=== PATIENT | female | born 1940 | race Asian ===

== ENCOUNTER 2018-07-28 04:22 | Emergency (ER) | payer OTHER, MEDICAID ==
[~2018-07-28] VITALS: Ht 162.6 cm; Wt 61.2 kg
[2018-07-28 04:22] VITALS: BP_SYST 163
--- NOTE | 2018-07-28 04:29 | NUR ---
Patient to ER bed 2 to gown for evaluation. Side rails up.
--- NOTE | 2018-07-28 04:32 | NUR ---
Pt complains of abdominal pain stating she hasn't had a regular bowel movement since last Monday or Monday. Pt states yesterday she had three "tiny" bowel movements. Pt states nausea just occurred tonight. Pt denies vomiting or fever. No other injuries/complaints per patient or noted.
--- NOTE | 2018-07-28 04:33 | NUR ---
ER Dr. Desai at bedside examining patient.
[2018-07-28] MEDS ORDERED: ONDANSETRON 4 MG ODT TAB PO ONE (04:45)
--- NOTE | 2018-07-28 05:01 | NUR ---
Medication was given, pt tolerated well. No adverse reaction, will continue to monitor.
[2018-07-28 05:52] VITALS: BP_SYST 152
--- NOTE | 2018-07-28 05:52 | NUR ---
Patient given written and verbal discharge instructions and verbalizes understanding. ER MD discussed with patient the results and treatment provided. Patient in stable condition. ID arm band removed. Rx of Mineral Oil and Lactulose given. Patient educated on pain management and to follow up with PMD. Pain Scale 0. Opportunity for questions provided and answered. Medication side effect fact sheet provided.
== END 2018-07-28 05:52 | disposition home or self-care (01) ==
LOC: EDBD → SED 04:22
DX: K59.00 Constipation, unspecified (principal); E78.00 Pure hypercholesterolemia, unspecified; I10 Essential (primary) hypertension
CPT/HCPCS: 74176; 99284; Q0162

== ENCOUNTER 2018-08-02 06:13 | Inpatient (IN) | payer OTHER, MEDICAID ==
[~2018-08-02] VITALS: Ht 162.6 cm; Wt 61.5 kg
[2018-08-02 06:32] VITALS: BP_SYST 144
--- NOTE | 2018-08-02 06:33 | NUR ---
Patient to ER bed 8 to gown for evaluation. Side rails up.
--- NOTE | 2018-08-02 06:35 | NUR ---
Pt C/O constipationa nd Rt flank pain since yesterday. Was seen in the ER on 07/28 for GI Discomfort and was discharged with rx lactulose. Pt states she felt better on Monday but symptoms worsened last night. Last bowel movement was Monday. Pt denies any other complaints at this time will continue to monitor.
--- NOTE | 2018-08-02 06:38 | NUR ---
0638 - ER at bedside examining patient.
--- NOTE | 2018-08-02 06:38 | NUR ---
Melissa rosado in ED - 08/02/18 at 0640 by [email or web address] BREE Rashid at bedside examining patient.
--- NOTE | 2018-08-02 07:12 | NUR ---
Pt returned from CT in stable condition
--- NOTE | 2018-08-02 07:12 | NUR ---
Report given to Citlalli PALM for continuation of care
--- NOTE | 2018-08-02 07:19 | NUR ---
Dr Rashid at bedside examing pt
--- NOTE | 2018-08-02 07:34 | NUR ---
Dr Plummer at bedside.
[2018-08-02 08:05] LABS: BASOPHILS # (AUTO) 0.1 K/uL (0.0-0.2); BASOPHILS % (AUTO) 0.8 % (0.0-2.0); EOSINOPHILS # (AUTO) 0.1 K/uL (0.0-0.4); EOSINOPHILS % (AUTO) 0.4 % (0.0-4.0); HEMATOCRIT 26.5 % (36-48); HEMOGLOBIN 8.6 g/dL (12.0-16.0); LYMPHOCYTES # (AUTO) 1.5 K/uL (1.0-5.5); LYMPHOCYTES % (AUTO) 12.2 % (20.5-51.5); MEAN CORPUSCULAR HEMOGLOBIN 30 pg (27-31); MEAN CORPUSCULAR HGB CONC 33 % (32-36); MEAN CORPUSCULAR VOLUME 93 fL (79.0-98.0); MONOCYTES # (AUTO) 0.8 K/uL (0.0-1.0); MONOCYTES % (AUTO) 6.6 % (1.7-9.3); NEUTROPHILS # (AUTO) 10.1 K/uL (1.8-7.7); PLATELET COUNT (AUTO) 400 K/uL (130-430); RED BLOOD CELL COUNT(AUTO) 2.84 MIL/uL (4.2-6.2); RED CELL DISTRIBUTION WIDTH 13.3 % (9.0-15.0); WHITE BLOOD COUNT (AUTO) 12.7 K/uL (4.8-10.8)
[2018-08-02 08:15] LABS: ANION GAP 13 (5-15); CALCIUM 10.5 mg/dL (8.4-11.0); CHLORIDE 95 mmol/L (98-107); CREATININE 2.62 mg/dL (0.55-1.30); GLUCOSE 141 mg/dL (70-99); POTASSIUM 3.6 mmol/L (3.5-5.1); SODIUM SERUM 129 mmol/L (136-145); UREA NITROGEN, BLOOD 69 mg/dL (8-21)
[2018-08-02 08:19] LABS: ALANINE AMINOTRANSFERASE 14 U/L (12-78); ALBUMIN 3.2 g/dL (3.4-4.8); ASPARTATE AMINOTRANSFERASE 14 U/L (10-37); LIPASE 682 U/L (73-393); TOTAL BILIRUBIN 0.4 mg/dL (0.0-1.0)
[2018-08-02 08:44] LABS: BILIRUBIN,URINE NEGATIVE (NEGATIVE); BLOOD, URINE NEGATIVE (NEGATIVE); CLARITY/URINE CLEAR (CLEAR); COLOR,URINE YELLOW (YELLOW); GLUCOSE,URINE NEGATIVE (NEGATIVE); KETONES,URINE NEGATIVE (NEGATIVE); LEUKOCYTE ESTERASE ,URINE NEGATIVE (NEGATIVE); NITRITE, URINE NEGATIVE (NEGATIVE); PH,URINE 5.5 (5.0-8.0); PROTEIN URINE NEGATIVE (NEGATIVE); UROBILINOGEN,URINE 0.2 (0.2-1.0)
[2018-08-02] MEDS ORDERED: HYDR25TA4 PO (09:36)
[2018-08-02] MEDS ORDERED: NIFE60TA83 PO (09:36)
[2018-08-02] MEDS ORDERED: METO200T3 PO (09:36)
[2018-08-02] MEDS ORDERED: LIP20 PO (09:36)
[2018-08-02] MEDS ORDERED: LOSA100T3 PO (09:36)
--- NOTE | 2018-08-02 09:45 | NUR ---
Patient will be admitted to care of Dr Bernstein. Admitted to Med Surg unit. Will go to room 119A. Belongings list completed. Summary report printed. Report will be given at bedside.
--- NOTE | 2018-08-02 09:47 | NUR ---
ADMISSION NOTE Received patient from ER via ale, received report from Citlalli PALM. Patient admitted with diagnosis of Abdominal pain, renal failure and GI bleed. Patient oriented to hospital routine, call light, toileting and safety-patient verbalized understanding.
[2018-08-02 09:50] VITALS: BP_SYST 157
[2018-08-02] MEDS ORDERED: METOPROLOL TARTRATE 50 MG TABLET PO ONE (10:15)
[2018-08-02] MEDS ORDERED: cloNIDine HCL 0.1 MG TABLET PO PRN (10:15)
[2018-08-02] MEDS ORDERED: PANTOPRAZOLE SODIUM 40 MG/VIAL (PROTONIX) IVP ONE (10:15)
[2018-08-02] MEDS ORDERED: hydrALAZINE HCL 20 MG/ML VIAL IVP PRN (10:15)
--- NOTE | 2018-08-02 10:20 | NUR ---
opening note patient is resting in bed, A&Ox4, assessment completed, educated regional property manager light systema and plan of care, patient verbalized understanding, patient denies any pain at time, no signs of distress, IV site shows no signs of infiltration, no other needs addressed at this time, bed in the lowest position, two side rails up, call light within reach, fall/aspiration precautions in place.
--- NOTE | 2018-08-02 10:52 | NUR ---
CONSULT REASON FOR CONSULT: G.I. BLEEDING PERSON I SPOKE WITH: COLIN CONSULTING PHYSICIAN:SHARON SILVA WEDDING DESIGNER PHONE NUMBER: [phone] ORDERING PHYSICIAN: DR POE
[2018-08-02] MEDS ORDERED: POLYETHYLENE GLYCOL 3350, 17 GM/ POWD.PACK PO ONE ×2 (11:00→11:45)
[2018-08-02] MEDS: D5NS 1,000 ML IV SCH (11:04)
--- NOTE | 2018-08-02 12:17 | NUR ---
Miralax one time dose of miralax given per Dr Shepherd orders, educated on medication use and side effects, patient verbalized understanding, assisted patient to the restroom and back to bed, no other needs addressed at this time, fall/safety precautions in place.
[2018-08-02 12:46] VITALS: BP_SYST 127
[2018-08-02 14:08] LABS: HEMATOCRIT 23.6 % (36-48); HEMOGLOBIN 7.6 g/dL (12.0-16.0)
--- NOTE | 2018-08-02 14:40 | NUR ---
rounds patient is resting in bed, patient has had 4 dark stool bowel movements, H/H came back to 7.6 and 23.6, patient denies any pain at this time, will call Dr Shepherd for an update on patient. Addendum: 08/02/18 at 1743 by Cheyenne Munoz RN late entry Dr Shepherd returned call, informed him about the patient's 4 black stooled bowel movements and the patient's latest hemoglobin and hematocrit, requested new orders to be put in for EGD and colonoscopy for tomorrow morning, bowel prep to begin tonight, patient signed consent form with family present. Addendum: 08/02/18 at 1744 by Cheyenne Munoz RN continuation, Dr Shepherd states that for next blood draw, to page him if hematocrit drop below 7.0
--- NOTE | 2018-08-02 16:24 | NUR ---
rounds patient is resting in bed watching tv, patient denies any pain at this time, no other needs addressed at this time, IV site clean with no signs of infiltration, fall/safety precautions in place.
[2018-08-02 16:34] VITALS: BP_SYST 124
[2018-08-02] MEDS ORDERED: BISACODYL 5 MG TABLET.DR (DULCOLAX) PO ONE (17:00)
[2018-08-02] MEDS ORDERED: GOLYTELY / COLYTE SOLUTION 4 LITERS PO ONE (17:00)
--- NOTE | 2018-08-02 18:44 | NUR ---
closing note patient is resting in bed watching tv, patient denies any pain at this time, IV site has no signs of infiltration, will endorse report to noc shift nurse to continue with bowel prep throughout the night for scheduled colonoscopy and EGD tomorrow morning with Dr Shepherd, patient is aware and has signed the consent, patient is getting Q6 H/H check per MD order, Dr Shepherd said to call him if the hemoglobin drop below 7.0 otherwise update the primary MD about results, fall/safety precautions in place.
--- NOTE | 2018-08-02 19:15 | NUR ---
OPENING NOTE RECEIVED CARE OF PT. PT AAOX4, SITTING UP IN BED WITH VISITORS AT BEDSIDE. PT DENIES PAIN AT THIS TIME. GOLYTELY IS AT BEDSIDE AND PATIENT HAS BEEN EDUCATED REGARDING THE NEED TO DRINK THIS FOR PROCEDURE TOMORROW. IVF ARE INFUSING AT ORDERED RATE TO RIGHT AC, NO SIGN OF INFILTRATION AT IV SITE. BREATHING IS UNLABORED WITH NO S/S OF ACUTE DISTRESS. PT ORIENTED TO USE OF CALL LIGHT AND ENCOURAGED TO CALL FOR ASSISTANCE. SAFETY MAINTAINED. WILL MONITOR.
[2018-08-02 20:00] VITALS: BP_SYST 118
[2018-08-02 20:25] LABS: HEMATOCRIT 26.2 % (36-48); HEMOGLOBIN 8.4 g/dL (12.0-16.0)
[2018-08-02] MEDS: PANTOPRAZOLE SODIUM 40 MG/VIAL (PROTONIX) IVP SCH (20:30)
--- NOTE | 2018-08-02 20:30 | NUR ---
SCHEDULED MED PASS PT GIVEN SCHEDULED MEDICATIONS PROTONIX, LOPRESSOR, AND LIPITOR. MEDICATIONS AND POTENTIAL SIDE EFFECTS EXPLAINED. PT VERBALIZED UNDERSTANDING. PT ENCOURAGED TO CALL FOR FURTHER ASSISTANCE. SAFETY MAINTAINED. WILL MONITOR.
[2018-08-02] MEDS ORDERED: METOPROLOL TARTRATE 50 MG TABLET PO SCH (21:00)
[2018-08-02] MEDS ORDERED: ATORVASTATIN 20 MG TABLET PO SCH (21:00)
--- NOTE | 2018-08-02 22:10 | NUR ---
AMBULATED TO RESTROOM PT AMBULATED TO RESTROOM WITH A STEADY GAIT. PT TOLERATED ACTIVITY WELL. PT RETURNED TO BED AND REPOSITIONED HERSELF FOR COMFORT. PT BREATHING IS UNLABORED TO ROOM AIR. NO S/S OF ACUTE DISTRESS. PT ENCOURAGED TO CALL FOR ANY ASSISTANCE. SAFETY MAINTAINED. WILL MONITOR.
[2018-08-02 23:31] VITALS: BP_SYST 118
--- NOTE | 2018-08-03 | NUR ---
NPO FOR PROCEDURE NPO CONE PLACED AT BEDSIDE.
[2018-08-03] MEDS: D5NS 1,000 ML IV SCH (00:24)
--- NOTE | 2018-08-03 00:24 | NUR ---
IVF CHANGE BAG OF IVF CHANGED SCHEDULED. PT IS RESTING IN BED WITH EYES CLOSED. VISIBLE SYMMETRICAL RISE AND FALL OF CHEST TO ROOM AIR. IVF ARE INFUSING AT ORDERED RATE, NO SIGN OF INFILTRATION AT IV SITE. SAFETY MAINTAINED. WILL MONITOR.
--- NOTE | 2018-08-03 02:22 | NUR ---
SCHEDULED GOLYTELY PT'S SCHEDULED GOLYTELY WAS GIVEN TO PT. PT ENCOURAGED TO DRINK THE GOLYTELY AND WAS EDUCATED REGARDING THE ACTION AND POTENTIAL SIDE EFFECTS. PT VERBALIZED UNDERSTANDING. WARM BLANKETS WERE PROVIDED TO THE PT UPON REQUEST. SAFETY MAINTAINED. WILL MONITOR.
[2018-08-03] MEDS ORDERED: GOLYTELY / COLYTE SOLUTION 4 LITERS PO ONE (03:00)
[2018-08-03 03:03] LABS: HEMATOCRIT 25.7 % (36-48); HEMOGLOBIN 8.6 g/dL (12.0-16.0)
--- NOTE | 2018-08-03 04:15 | NUR ---
RN ROUNDS: PT RESTING IN BED, SITTING UP, AAOX4. NO S/S OF ACUTE DISTRESS, BREATHING IS UNLABORED TO ROOM AIR, IVF INFUSING AT ORDERED RATE. PT ENCOURAGED TO CALL FOR FURTHER ASSISTANCE. SAFETY MAINTAINED. WILL MONITOR.
--- NOTE | 2018-08-03 06:32 | NUR ---
CLOSING NOTE PT SITTING UP IN BED WITH AT BEDSIDE. IVF ARE INFUSING AT ORDERED RATE WITH NO SIGN OF INFILTRATION AT IV SITE. PT DENIES PAIN AT THIS TIME. BREATHING IS UNLABORED TO ROOM AIR. NO S/S OF ACUTE DISTRESS. NPO STATUS MAINTAINED. ALL NEEDS MET DURING SHIFT. SAFETY MAINTAINED. WILL CONTINUE TO MONITOR AND PROVIDE CARE UNTIL PT CARE IS ENDORSED TO DAY SHIFT RN.
[2018-08-03 06:55] LABS: TOTAL IRON BIND. CAPACITY 226 ug/dL (250-450)
[2018-08-03] MEDS ORDERED: SIMETHICONE 40 MG/0.6 ML ML ONE (07:03)
[2018-08-03] MEDS ORDERED: BENZOCAINE 20% 0.5mL UD SPRAY MM ONE ×2 (07:03→14:53)
[2018-08-03] MEDS ORDERED: MIDAZOLAM HCL 5 MG/5 ML VIAL ONE (07:03)
[2018-08-03 08:00] VITALS: BP_SYST 165
--- NOTE | 2018-08-03 08:00 | NUR ---
initial notes rec patient awake laert with infiltrated iv and was restarted by kelle rachel resp easy and unlabored. no sob noted. was picked up at bedside via wheelchair for egd /colonoscopy. npo maintained.
[2018-08-03] MEDS: fentaNYL CITRATE/PF 100 MCG/2 ML AMP ONE ×4 (08:26→08:42)
[2018-08-03] MEDS: MIDAZOLAM HCL 5 MG/5 ML VIAL ONE ×4 (08:26→08:42)
--- NOTE | 2018-08-03 10:00 | NUR ---
rounds pt back from gi lab via wheelchair. sitting at the edge of the bed and denies pain.
[2018-08-03 10:24] LABS: HEMATOCRIT 23.7 % (36-48); HEMOGLOBIN 7.8 g/dL (12.0-16.0)
[2018-08-03 10:49] LABS: ANION GAP 13 (5-15); CALCIUM 9.3 mg/dL (8.4-11.0); CHLORIDE 103 mmol/L (98-107); CREATININE 1.93 mg/dL (0.55-1.30); GLUCOSE 116 mg/dL (70-99); POTASSIUM 3.2 mmol/L (3.5-5.1); SODIUM SERUM 137 mmol/L (136-145); UREA NITROGEN, BLOOD 51 mg/dL (8-21)
[2018-08-03] MEDS: PANTOPRAZOLE SODIUM 40 MG/VIAL (PROTONIX) IVP SCH (11:20)
[2018-08-03 12:50] VITALS: BP_SYST 131
[2018-08-03 15:06] VITALS: BP_SYST 131
--- NOTE | 2018-08-03 15:40 | NUR ---
closing notes pt was discharged after seen by dr barbour . med rec wasd explained, follow up appt with pmd. refused wheelchair and ambulated. stable . no sob noted.
[2018-08-06 13:38] LABS: FOLATE (FOLIC ACID) 18.2 ng/mL (>3.0)
--- NOTE | 2018-08-09 13:57 | NUR ---
Discharge Follow Up Phone Call MATTE CUTTER phoned patient, . Patient stated that she was doing fine. She has been advancing her diet slowly, as recommended. She has made a follow up appointment with her PCP for next week. Patient has filled her prescriptions and is taking her medications as directed. No questions or concerns.
== END 2018-08-03 15:40 | disposition home or self-care (01) | DRG 378 ==
LOC: SED 06:13 → SMU 09:45
PROVIDERS: ADMIT Internal Medicine Hospice and Palliative Medicine; ATTEND Internal Medicine Hospice and Palliative Medicine
PROC: 0DB68ZX Excision of Stomach, Via Natural or Artificial Opening Endoscopic, Diagnostic (ICD-10-PCS; principal; 2018-08-03 09:00)
PROC: 0DBH8ZX Excision of Cecum, Via Natural or Artificial Opening Endoscopic, Diagnostic (ICD-10-PCS; 2018-08-03 09:00)
DX: K26.4 Chronic or unspecified duodenal ulcer with hemorrhage (principal); D62 Acute posthemorrhagic anemia; N17.9 Acute kidney failure, unspecified; K92.2 Gastrointestinal hemorrhage, unspecified; K29.60 Other gastritis without bleeding; K26.7 Chronic duodenal ulcer without hemorrhage or perforation; F17.200 Nicotine dependence, unspecified, uncomplicated; K29.71 Gastritis, unspecified, with bleeding; D12.0 Benign neoplasm of cecum; E11.9 Type 2 diabetes mellitus without complications; I10 Essential (primary) hypertension; Z79.82 Long term (current) use of aspirin; Z90.710 Acquired absence of both cervix and uterus
CPT/HCPCS: 36415; 43239; 45385; 74021; 76700-TC; 80048; 80053; 81003; 82272; 82607; 82728; 82746; 83540-TC; 83550-TC; 83615-TC; 83690-TC; 84443-TC; 85018-TC; 85025; 87081; 88305; 88312; 88313; 99285; C9113; J2250; J3010; J7042

== ENCOUNTER 2018-08-13 20:42 | Emergency (ER) | payer OTHER, MEDICAID ==
[~2018-08-13] VITALS: Ht 157.5 cm; Wt 61.2 kg
[~2018-08-13 20:42] MED LIST: LIP20 PO; METO200T3 PO; NIFE60TA83 PO
[2018-08-13 20:47] VITALS: BP_SYST 187
[2018-08-13] MEDS ORDERED: cloNIDine HCL 0.1 MG TABLET PO ONE (21:15)
[2018-08-13 21:45] LABS: BASOPHILS # (AUTO) 0.1 K/uL (0.0-0.2); BASOPHILS % (AUTO) 0.6 % (0.0-2.0); EOSINOPHILS # (AUTO) 0.3 K/uL (0.0-0.4); EOSINOPHILS % (AUTO) 3.2 % (0.0-4.0); HEMATOCRIT 23.8 % (36-48); HEMOGLOBIN 7.7 g/dL (12.0-16.0); LYMPHOCYTES % (AUTO) 10.8 % (20.5-51.5); MEAN CORPUSCULAR HEMOGLOBIN 31 pg (27-31); MEAN CORPUSCULAR HGB CONC 32 % (32-36); MEAN CORPUSCULAR VOLUME 97 fL (79.0-98.0); MONOCYTES # (AUTO) 0.6 K/uL (0.0-1.0); MONOCYTES % (AUTO) 6.6 % (1.7-9.3); NEUTROPHILS # (AUTO) 7.1 K/uL (1.8-7.7); NEUTROPHILS % (AUTO) 78.8 % (40.0-70.0); PLATELET COUNT (AUTO) 319 K/uL (130-430); RED BLOOD CELL COUNT(AUTO) 2.46 MIL/uL (4.2-6.2); RED CELL DISTRIBUTION WIDTH 15.7 % (9.0-15.0)
[2018-08-13 22:08] LABS: ANION GAP 12 (5-15); CALCIUM 9.9 mg/dL (8.4-11.0); CHLORIDE 105 mmol/L (98-107); CREATININE 2.63 mg/dL (0.55-1.30); GLUCOSE 95 mg/dL (70-99); POTASSIUM 4.3 mmol/L (3.5-5.1); SODIUM SERUM 134 mmol/L (136-145); UREA NITROGEN, BLOOD 44 mg/dL (8-21)
[2018-08-13 22:13] LABS: ALANINE AMINOTRANSFERASE 60 U/L (12-78); ALBUMIN 2.5 g/dL (3.4-4.8); ASPARTATE AMINOTRANSFERASE 28 U/L (10-37); TOTAL BILIRUBIN 0.4 mg/dL (0.0-1.0)
[2018-08-13 22:50] VITALS: BP_SYST 147
== END 2018-08-13 22:53 | disposition home or self-care (01) ==
LOC: SED 20:42
DX: I10 Essential (primary) hypertension (principal); N28.9 Disorder of kidney and ureter, unspecified; D64.9 Anemia, unspecified; E78.00 Pure hypercholesterolemia, unspecified; Z90.710 Acquired absence of both cervix and uterus; Z79.899 Other long term (current) drug therapy
CPT/HCPCS: 36415; 80053; 85025; 93005; 99284

== ENCOUNTER 2022-10-06 03:04 | Inpatient (IN) | payer OTHER, MEDICAID ==
[~2022-10-06] VITALS: Ht 157.5 cm; Wt 64.0 kg
[2022-10-06] VITALS (11 sets, daily range): BP systolic 100–147; PULSE 78–132; RESP 17–30; TEMP 96.7–97.6; O2SAT 78–100
[2022-10-06] MEDS ORDERED: cefTRIAXone 1 GM IVPB PREMIX 50 ML IV ONE (03:30)
[2022-10-06] MEDS ORDERED: AZITHROMYCIN 500 MG in NS 250 ML IV ONE (03:30)
[2022-10-06] MEDS ORDERED: AZITHROMYCIN 500 MG/VIAL (ZITHROMAX) IV ONE (03:43)
[2022-10-06 03:53] LABS: BASOPHILS % (AUTO) 0.3 % (0.0-2.0); EOSINOPHILS # (AUTO) 0.4 K/uL (0.0-0.4); EOSINOPHILS % (AUTO) 3.3 % (0.0-4.0); HEMATOCRIT 29.9 % (36-48); HEMOGLOBIN 9.4 g/dL (12.0-16.0); LYMPHOCYTES # (AUTO) 1.8 K/uL (1.0-5.5); LYMPHOCYTES % (AUTO) 16.4 % (20.5-51.5); MEAN CORPUSCULAR HEMOGLOBIN 31 pg (27-31); MEAN CORPUSCULAR HGB CONC 31 % (32-36); MEAN CORPUSCULAR VOLUME 98 fL (79.0-98.0); MONOCYTES # (AUTO) 0.8 K/uL (0.0-1.0); MONOCYTES % (AUTO) 7.1 % (1.7-9.3); NEUTROPHILS # (AUTO) 7.8 K/uL (1.8-7.7); NEUTROPHILS % (AUTO) 72.9 % (40.0-70.0); PLATELET COUNT (AUTO) 292 K/uL (130-430); RED BLOOD CELL COUNT(AUTO) 3.06 MIL/uL (4.2-6.2); RED CELL DISTRIBUTION WIDTH 16.4 % (9.0-15.0); WHITE BLOOD COUNT (AUTO) 10.7 K/uL (4.8-10.8)
[2022-10-06 04:27] LABS: ALANINE AMINOTRANSFERASE 43 U/L (12-78); ALBUMIN 3.2 g/dL (3.4-4.8); ANION GAP 12 (5-15); ASPARTATE AMINOTRANSFERASE 40 U/L (10-37); CALCIUM 9.5 mg/dL (8.4-11.0); CHLORIDE 98 mmol/L (98-107); CREATININE 2.58 mg/dL (0.55-1.30); GLUCOSE 226 mg/dL (74-106); TOTAL BILIRUBIN 0.5 mg/dL (0.0-1.0); UREA NITROGEN, BLOOD 39 mg/dL (8-21)
[2022-10-06] MEDS ORDERED: FUROSEMIDE 20 MG/2 ML VIAL IVP ONE (06:45)
[2022-10-06] MEDS ORDERED: HYDR-4039 PO (08:15)
[2022-10-06] MEDS ORDERED: NOR10 PO (08:15)
[2022-10-06] MEDS ORDERED: FOLI0.8T42 PO (08:15)
[2022-10-06] MEDS ORDERED: SODI650T PO (08:15)
[2022-10-06] MEDS: IPRATROPIUM/ALBUTEROL SULFATE 3 ML AMPUL.NEB (DUONEB) INH SCH ×5 (08:30→22:53)
[2022-10-06] MEDS: FUROSEMIDE 20 MG/2 ML VIAL IVP SCH (09:00)
[2022-10-06] MEDS: HEPARIN SODIUM,PORCINE 5,000 UNITS/ML VIAL SUBCUT SCH ×2 (09:00→20:20)
[2022-10-06 09:14] LABS: BILIRUBIN,URINE NEGATIVE (NEGATIVE); BLOOD, URINE NEGATIVE (NEGATIVE); CLARITY/URINE CLEAR (CLEAR); COLOR,URINE YELLOW (YELLOW); GLUCOSE,URINE NEGATIVE (NEGATIVE); KETONES,URINE NEGATIVE (NEGATIVE); LEUKOCYTE ESTERASE ,URINE 1+ (NEGATIVE); NITRITE, URINE NEGATIVE (NEGATIVE); PROTEIN URINE 1+ (NEGATIVE); UROBILINOGEN,URINE 0.2 (0.2-1.0)
[2022-10-06 10:12] LABS: BACTERIA,URINE FEW /HPF (None Seen); RBC,URINE 0-3 /HPF (0-3)
[2022-10-06] MEDS ORDERED: ALBUTEROL SULFATE 0.083% 2.5 MG/3 ML VIAL.NEB INH SCH (19:00)
[2022-10-06] MEDS ORDERED: NALOXONE HCL 0.4 MG/ML AMP (NARCAN) IVP PRN ×2 (19:00)
[2022-10-06] MEDS ORDERED: HYDROcodone/ACETAMIN 5-325 MG TAB (NORCO/ VICODIN) PO PRN (19:00)
[2022-10-06] MEDS ORDERED: HYDROcodone/ACETAMIN 10-325 MG TAB PO PRN (19:00)
[2022-10-06] MEDS ORDERED: ONDANSETRON HCL 4 MG/2 ML VIAL IVP PRN (19:00)
[2022-10-06] MEDS ORDERED: IPRATROPIUM BROM 0.5 MG/2.5 ML VIAL.NEB (ATROVENT) INH SCH (19:00)
[2022-10-06] MEDS ORDERED: ACETAMINOPHEN 325 MG TABLET PO PRN ×2 (19:00)
[2022-10-06] MEDS ORDERED: LORazepam 2 MG/ML VIAL IVP PRN (19:00)
[2022-10-06] MEDS: SODIUM BICARBONATE 650 MG TABLET PO SCH (20:15)
[2022-10-06] MEDS: ATORVASTATIN 20 MG TABLET PO SCH (20:16)
[2022-10-06] MEDS: NIFEdipine 30 MG TAB.ER.24 PO SCH (20:16)
[2022-10-07] VITALS (15 sets, daily range): BP systolic 110–135; PULSE 69–100; RESP 16–20; TEMP 97.4–98; O2SAT 95–100
[2022-10-07] MEDS: IPRATROPIUM/ALBUTEROL SULFATE 3 ML AMPUL.NEB (DUONEB) INH SCH ×6 (03:02→23:10)
[2022-10-07 05:47] LABS: BASOPHILS % (AUTO) 0.1 % (0.0-2.0); HEMATOCRIT 25.4 % (36-48); LYMPHOCYTES # (AUTO) 0.3 K/uL (1.0-5.5); LYMPHOCYTES % (AUTO) 2.5 % (20.5-51.5); MEAN CORPUSCULAR HEMOGLOBIN 30 pg (27-31); MEAN CORPUSCULAR HGB CONC 31 % (32-36); MEAN CORPUSCULAR VOLUME 97 fL (79.0-98.0); MONOCYTES # (AUTO) 0.7 K/uL (0.0-1.0); MONOCYTES % (AUTO) 5.4 % (1.7-9.3); NEUTROPHILS # (AUTO) 11.3 K/uL (1.8-7.7); PLATELET COUNT (AUTO) 271 K/uL (130-430); RED BLOOD CELL COUNT(AUTO) 2.63 MIL/uL (4.2-6.2); RED CELL DISTRIBUTION WIDTH 16.2 % (9.0-15.0); WHITE BLOOD COUNT (AUTO) 12.3 K/uL (4.8-10.8)
[2022-10-07 06:13] LABS: ALANINE AMINOTRANSFERASE 45 U/L (12-78); ALBUMIN 2.7 g/dL (3.4-4.8); ANION GAP 15 (5-15); ASPARTATE AMINOTRANSFERASE 122 U/L (10-37); CALCIUM 9.8 mg/dL (8.4-11.0); CHLORIDE 96 mmol/L (98-107); CREATININE 3.07 mg/dL (0.55-1.30); GLUCOSE 167 mg/dL (74-106); PHOSPHORUS 4.3 mg/dL (2.7-4.5); TOTAL BILIRUBIN 0.2 mg/dL (0.0-1.0); UREA NITROGEN, BLOOD 47 mg/dL (8-21)
[2022-10-07] MEDS: NORMAL SALINE 5 ML DISP.SYRIN IVF SCH ×4 (07:08→23:07)
[2022-10-07] MEDS: NIFEdipine 30 MG TAB.ER.24 PO SCH ×2 (09:14→23:03)
[2022-10-07] MEDS: SODIUM BICARBONATE 650 MG TABLET PO SCH (09:14)
[2022-10-07] MEDS: FUROSEMIDE 20 MG/2 ML VIAL IVP SCH ×2 (09:15→23:04)
[2022-10-07] MEDS: HEPARIN SODIUM,PORCINE 5,000 UNITS/ML VIAL SUBCUT SCH ×2 (09:17→23:06)
[2022-10-07] MEDS: NEPHROVITE, (FOLIC ACID/VITAMIN B COMP W-C 1 TAB) PO SCH (09:18)
[2022-10-07] MEDS: hydrALAZINE HCL 25 MG TABLET PO SCH (09:18)
[2022-10-07] MEDS: amLODIPine BESYLATE 10 MG TABLET PO SCH (09:19)
[2022-10-07] MEDS ORDERED: FUROSEMIDE 40 MG/4 ML VIAL IVP ONE (14:15)
[2022-10-07] MEDS ORDERED: METHYLPREDNISOLONE SOD SUCC 40 MG/ML VIAL IVP ONE (14:30)
[2022-10-07 16:33] LABS: BASOPHILS % (AUTO) 0.1 % (0.0-2.0); HEMATOCRIT 24.8 % (36-48); HEMOGLOBIN 7.8 g/dL (12.0-16.0); LYMPHOCYTES # (AUTO) 0.5 K/uL (1.0-5.5); LYMPHOCYTES % (AUTO) 3.7 % (20.5-51.5); MEAN CORPUSCULAR HEMOGLOBIN 30 pg (27-31); MEAN CORPUSCULAR HGB CONC 31 % (32-36); MONOCYTES # (AUTO) 0.9 K/uL (0.0-1.0); MONOCYTES % (AUTO) 6.8 % (1.7-9.3); NEUTROPHILS % (AUTO) 89.4 % (40.0-70.0); PLATELET COUNT (AUTO) 261 K/uL (130-430); RED BLOOD CELL COUNT(AUTO) 2.62 MIL/uL (4.2-6.2); RED CELL DISTRIBUTION WIDTH 15.9 % (9.0-15.0); WHITE BLOOD COUNT (AUTO) 13.5 K/uL (4.8-10.8)
[2022-10-07 16:34] LABS: MEAN CORPUSCULAR VOLUME 95 fL (79.0-98.0)
[2022-10-07 20:26] LABS: BASOPHILS % (AUTO) 0.2 % (0.0-2.0); HEMATOCRIT 25.8 % (36-48); HEMOGLOBIN 7.9 g/dL (12.0-16.0); LYMPHOCYTES # (AUTO) 0.1 K/uL (1.0-5.5); MEAN CORPUSCULAR HEMOGLOBIN 30 pg (27-31); MEAN CORPUSCULAR HGB CONC 31 % (32-36); MEAN CORPUSCULAR VOLUME 97 fL (79.0-98.0); MONOCYTES # (AUTO) 0.2 K/uL (0.0-1.0); MONOCYTES % (AUTO) 1.1 % (1.7-9.3); NEUTROPHILS % (AUTO) 97.7 % (40.0-70.0); PLATELET COUNT (AUTO) 261 K/uL (130-430); RED BLOOD CELL COUNT(AUTO) 2.68 MIL/uL (4.2-6.2); RED CELL DISTRIBUTION WIDTH 15.9 % (9.0-15.0); WHITE BLOOD COUNT (AUTO) 14.4 K/uL (4.8-10.8)
[2022-10-07] MEDS: ATORVASTATIN 20 MG TABLET PO SCH (23:03)
[2022-10-07] MEDS: METHYLPREDNISOLONE SOD SUCC 40 MG/ML VIAL IVP SCH (23:05)
[2022-10-07] MEDS: metroNIDAZOLE 250 mg/NS 50 ML IV SCH (23:07)
[2022-10-08] VITALS (16 sets, daily range): BP systolic 106–127; PULSE 70–109; RESP 19–38; TEMP 96–96.6; O2SAT 98–100
[2022-10-08] MEDS: IPRATROPIUM/ALBUTEROL SULFATE 3 ML AMPUL.NEB (DUONEB) INH SCH ×6 (04:26→22:45)
[2022-10-08 04:39] LABS: HEMATOCRIT 24.4 % (36-48); HEMOGLOBIN 7.8 g/dL (12.0-16.0); LYMPHOCYTES # (AUTO) 0.2 K/uL (1.0-5.5); LYMPHOCYTES % (AUTO) 2.4 % (20.5-51.5); MEAN CORPUSCULAR HEMOGLOBIN 30 pg (27-31); MEAN CORPUSCULAR HGB CONC 32 % (32-36); MEAN CORPUSCULAR VOLUME 95 fL (79.0-98.0); MONOCYTES # (AUTO) 0.1 K/uL (0.0-1.0); MONOCYTES % (AUTO) 0.9 % (1.7-9.3); NEUTROPHILS # (AUTO) 8.8 K/uL (1.8-7.7); NEUTROPHILS % (AUTO) 96.7 % (40.0-70.0); PLATELET COUNT (AUTO) 281 K/uL (130-430); RED BLOOD CELL COUNT(AUTO) 2.56 MIL/uL (4.2-6.2); RED CELL DISTRIBUTION WIDTH 15.7 % (9.0-15.0); WHITE BLOOD COUNT (AUTO) 9.1 K/uL (4.8-10.8)
[2022-10-08 04:53] LABS: ERYTHROCYTE SEDIMENTATION RATE 63 MM/HR (0-20)
[2022-10-08 04:56] LABS: ANION GAP 14 (5-15); CALCIUM 10.5 mg/dL (8.4-11.0); CHLORIDE 94 mmol/L (98-107); CREATININE 3.47 mg/dL (0.55-1.30); GLUCOSE 223 mg/dL (74-106); PHOSPHORUS 4.5 mg/dL (2.7-4.5); UREA NITROGEN, BLOOD 53 mg/dL (8-21)
[2022-10-08] MEDS: FUROSEMIDE 20 MG/2 ML VIAL IVP SCH ×3 (06:36→21:13)
[2022-10-08] MEDS: NORMAL SALINE 5 ML DISP.SYRIN IVF SCH ×3 (06:36→21:14)
[2022-10-08] MEDS: metroNIDAZOLE 250 mg/NS 50 ML IV SCH ×3 (06:36→21:10)
[2022-10-08] MEDS: NEPHROVITE, (FOLIC ACID/VITAMIN B COMP W-C 1 TAB) PO SCH (08:39)
[2022-10-08] MEDS: METHYLPREDNISOLONE SOD SUCC 40 MG/ML VIAL IVP SCH ×2 (08:41→21:12)
[2022-10-08] MEDS: amLODIPine BESYLATE 10 MG TABLET PO SCH (08:42)
[2022-10-08] MEDS: NIFEdipine 30 MG TAB.ER.24 PO SCH ×2 (08:43→21:14)
[2022-10-08] MEDS: hydrALAZINE HCL 25 MG TABLET PO SCH (08:44)
[2022-10-08] MEDS: HEPARIN SODIUM,PORCINE 5,000 UNITS/ML VIAL SUBCUT SCH ×2 (08:47→21:12)
[2022-10-08] MEDS: ATORVASTATIN 20 MG TABLET PO SCH (21:14)
[2022-10-08] MEDS ORDERED: FUROSEMIDE 40 MG/4 ML VIAL ONE (23:36)
[2022-10-09] VITALS (34 sets, daily range): BP systolic 76–131; PULSE 30–114; RESP 17–38; TEMP 98–98.2; O2SAT 92–99
[2022-10-09] MEDS ORDERED: FUROSEMIDE 40 MG/4 ML VIAL IVP ONE
[2022-10-09 00:32] LABS: BASOPHILS % (AUTO) 0.1 % (0.0-2.0); HEMATOCRIT 25.5 % (36-48); HEMOGLOBIN 7.8 g/dL (12.0-16.0); LYMPHOCYTES # (AUTO) 0.3 K/uL (1.0-5.5); MEAN CORPUSCULAR HEMOGLOBIN 30 pg (27-31); MEAN CORPUSCULAR HGB CONC 31 % (32-36); MEAN CORPUSCULAR VOLUME 97 fL (79.0-98.0); MONOCYTES # (AUTO) 0.7 K/uL (0.0-1.0); MONOCYTES % (AUTO) 4.5 % (1.7-9.3); NEUTROPHILS # (AUTO) 15.6 K/uL (1.8-7.7); NEUTROPHILS % (AUTO) 93.4 % (40.0-70.0); PLATELET COUNT (AUTO) 313 K/uL (130-430); RED BLOOD CELL COUNT(AUTO) 2.63 MIL/uL (4.2-6.2); RED CELL DISTRIBUTION WIDTH 15.8 % (9.0-15.0); WHITE BLOOD COUNT (AUTO) 16.7 K/uL (4.8-10.8)
[2022-10-09 01:33] LABS: PROTHROMBIN TIME 10.1 SECS (9.5-12.5)
[2022-10-09 01:37] LABS: ANION GAP 13 (5-15); CALCIUM 10.5 mg/dL (8.4-11.0); CHLORIDE 91 mmol/L (98-107); CREATININE 4.22 mg/dL (0.55-1.30); GLUCOSE 302 mg/dL (74-106); UREA NITROGEN, BLOOD 69 mg/dL (8-21)
[2022-10-09 01:41] LABS: ALANINE AMINOTRANSFERASE 46 U/L (12-78); ALBUMIN 3.1 g/dL (3.4-4.8); ASPARTATE AMINOTRANSFERASE 66 U/L (10-37); PHOSPHORUS 5.2 mg/dL (2.7-4.5); TOTAL BILIRUBIN 0.3 mg/dL (0.0-1.0)
[2022-10-09] MEDS: IPRATROPIUM/ALBUTEROL SULFATE 3 ML AMPUL.NEB (DUONEB) INH SCH ×6 (02:36→22:41)
[2022-10-09 05:37] LABS: HEMATOCRIT 23.4 % (36-48); HEMOGLOBIN 7.2 g/dL (12.0-16.0); LYMPHOCYTES # (AUTO) 0.3 K/uL (1.0-5.5); LYMPHOCYTES % (AUTO) 2.2 % (20.5-51.5); MEAN CORPUSCULAR HEMOGLOBIN 30 pg (27-31); MEAN CORPUSCULAR HGB CONC 31 % (32-36); MEAN CORPUSCULAR VOLUME 96 fL (79.0-98.0); MONOCYTES # (AUTO) 0.6 K/uL (0.0-1.0); MONOCYTES % (AUTO) 4.5 % (1.7-9.3); NEUTROPHILS # (AUTO) 12.4 K/uL (1.8-7.7); NEUTROPHILS % (AUTO) 93.3 % (40.0-70.0); PLATELET COUNT (AUTO) 261 K/uL (130-430); RED BLOOD CELL COUNT(AUTO) 2.43 MIL/uL (4.2-6.2); RED CELL DISTRIBUTION WIDTH 15.6 % (9.0-15.0); WHITE BLOOD COUNT (AUTO) 13.3 K/uL (4.8-10.8)
[2022-10-09 05:59] LABS: ALANINE AMINOTRANSFERASE 40 U/L (12-78); ALBUMIN 2.8 g/dL (3.4-4.8); ANION GAP 14 (5-15); ASPARTATE AMINOTRANSFERASE 59 U/L (10-37); CALCIUM 10.1 mg/dL (8.4-11.0); CHLORIDE 92 mmol/L (98-107); CREATININE 4.35 mg/dL (0.55-1.30); GLUCOSE 242 mg/dL (74-106); TOTAL BILIRUBIN 0.3 mg/dL (0.0-1.0); UREA NITROGEN, BLOOD 69 mg/dL (8-21)
[2022-10-09] MEDS: metroNIDAZOLE 250 mg/NS 50 ML IV SCH ×3 (07:02→21:38)
[2022-10-09] MEDS: FUROSEMIDE 20 MG/2 ML VIAL IVP SCH ×3 (07:03→21:39)
[2022-10-09] MEDS: NORMAL SALINE 5 ML DISP.SYRIN IVF SCH ×3 (07:03→21:39)
[2022-10-09] MEDS: HEPARIN SODIUM,PORCINE 5,000 UNITS/ML VIAL SUBCUT SCH (09:23)
[2022-10-09] MEDS: NEPHROVITE, (FOLIC ACID/VITAMIN B COMP W-C 1 TAB) PO SCH (09:24)
[2022-10-09] MEDS: METHYLPREDNISOLONE SOD SUCC 40 MG/ML VIAL IVP SCH ×2 (09:25→20:26)
[2022-10-09] MEDS: NIFEdipine 30 MG TAB.ER.24 PO SCH (09:26)
[2022-10-09] MEDS: hydrALAZINE HCL 25 MG TABLET PO SCH (09:27)
[2022-10-09] MEDS: amLODIPine BESYLATE 10 MG TABLET PO SCH (09:28)
[2022-10-09] MEDS ORDERED: METOPROLOL SUCCINATE 25 MG TAB.SR.24H (TOPROL XL) PO ONE (11:00)
[2022-10-09] MEDS ORDERED: SILDENAFIL CITRATE 20 MG TABLET PO ONE (11:00)
[2022-10-09] MEDS ORDERED: SODIUM ZIRCONIUM CYCLOSILICATE 10 GM POWD.PACK PO ONE (11:30)
[2022-10-09] MEDS ORDERED: HEPARIN SODIUM,PORCINE 3000 UNITS/0.6 ML BOLUS IVP PRN (15:15)
[2022-10-09] MEDS ORDERED: ALBUMIN HUMAN 25% 100 ML IV ONE (15:15)
[2022-10-09] MEDS ORDERED: HEPARIN SODIUM,PORCINE 2000 UNITS/0.4 ML BOLUS IVP PRN (15:15)
[2022-10-09] MEDS ORDERED: *HEPARIN PER PHARMACY XX ONE (15:15)
[2022-10-09] MEDS ORDERED: HEPARIN 25,000 UNITS in 250 ML PREMIX IV PRN (15:15)
[2022-10-09] MEDS ORDERED: HEPARIN SODIUM,PORCINE 5,000 UNITS/ML VIAL IVP ONE (15:30)
[2022-10-09] MEDS ORDERED: ATORVASTATIN 20 MG TABLET PO ONE (16:00)
[2022-10-09] MEDS: NOREPINEPHRINE BITARTRATE 16 MG in NS 234 ML IV PRN (16:56)
[2022-10-09] MEDS: SILDENAFIL CITRATE 20 MG TABLET PO SCH ×2 (17:22→20:27)
[2022-10-10] VITALS (35 sets, daily range): BP systolic 90–128; PULSE 76–127; RESP 12–44; TEMP 97.5–98.5; O2SAT 87–100
[2022-10-10] MEDS: IPRATROPIUM/ALBUTEROL SULFATE 3 ML AMPUL.NEB (DUONEB) INH SCH ×6 (02:50→23:21)
[2022-10-10 04:42] LABS: LYMPHOCYTES # (AUTO) 0.6 K/uL (1.0-5.5); LYMPHOCYTES % (AUTO) 3.8 % (20.5-51.5); MEAN CORPUSCULAR HEMOGLOBIN 29 pg (27-31); MEAN CORPUSCULAR HGB CONC 31 % (32-36); MEAN CORPUSCULAR VOLUME 96 fL (79.0-98.0); MONOCYTES # (AUTO) 1.1 K/uL (0.0-1.0); MONOCYTES % (AUTO) 6.9 % (1.7-9.3); NEUTROPHILS # (AUTO) 13.9 K/uL (1.8-7.7); NEUTROPHILS % (AUTO) 89.3 % (40.0-70.0); PLATELET COUNT (AUTO) 217 K/uL (130-430); RED CELL DISTRIBUTION WIDTH 15.8 % (9.0-15.0); WHITE BLOOD COUNT (AUTO) 15.5 K/uL (4.8-10.8)
[2022-10-10 04:48] LABS: ALANINE AMINOTRANSFERASE 83 U/L (12-78); ALBUMIN 3.1 g/dL (3.4-4.8); ANION GAP 14 (5-15); ASPARTATE AMINOTRANSFERASE 91 U/L (10-37); CALCIUM 9.6 mg/dL (8.4-11.0); CHLORIDE 96 mmol/L (98-107); CREATININE 3.41 mg/dL (0.55-1.30); GLUCOSE 289 mg/dL (74-106); PHOSPHORUS 4.9 mg/dL (2.7-4.5); TOTAL BILIRUBIN 0.4 mg/dL (0.0-1.0); UREA NITROGEN, BLOOD 55 mg/dL (8-21)
[2022-10-10 05:44] LABS: HEMATOCRIT 21.1 % (36-48); HEMOGLOBIN 6.5 g/dL (12.0-16.0)
[2022-10-10] MEDS: NORMAL SALINE 5 ML DISP.SYRIN IVF SCH ×3 (05:49→21:46)
[2022-10-10] MEDS: metroNIDAZOLE 250 mg/NS 50 ML IV SCH ×3 (05:49→21:46)
[2022-10-10] MEDS: FUROSEMIDE 20 MG/2 ML VIAL IVP SCH ×3 (05:50→21:47)
[2022-10-10] MEDS: METOPROLOL SUCCINATE 25 MG TAB.SR.24H (TOPROL XL) PO SCH (09:00)
[2022-10-10] MEDS: hydrALAZINE HCL 25 MG TABLET PO SCH (09:00)
[2022-10-10 09:26] LABS: BASOPHILS % (AUTO) 0.1 % (0.0-2.0); LYMPHOCYTES # (AUTO) 0.6 K/uL (1.0-5.5); LYMPHOCYTES % (AUTO) 3.8 % (20.5-51.5); MEAN CORPUSCULAR HEMOGLOBIN 29 pg (27-31); MEAN CORPUSCULAR HGB CONC 30 % (32-36); MEAN CORPUSCULAR VOLUME 96 fL (79.0-98.0); MONOCYTES # (AUTO) 1.1 K/uL (0.0-1.0); MONOCYTES % (AUTO) 7.3 % (1.7-9.3); NEUTROPHILS # (AUTO) 13.4 K/uL (1.8-7.7); NEUTROPHILS % (AUTO) 88.8 % (40.0-70.0); PLATELET COUNT (AUTO) 186 K/uL (130-430); RED CELL DISTRIBUTION WIDTH 16.1 % (9.0-15.0); WHITE BLOOD COUNT (AUTO) 15.1 K/uL (4.8-10.8)
[2022-10-10 09:29] LABS: RED BLOOD CELL COUNT(AUTO) 1.93 MIL/uL (4.2-6.2)
[2022-10-10 09:30] LABS: HEMOGLOBIN 5.6 g/dL (12.0-16.0)
[2022-10-10 09:31] LABS: HEMATOCRIT 18.5 % (36-48)
[2022-10-10] MEDS: NEPHROVITE, (FOLIC ACID/VITAMIN B COMP W-C 1 TAB) PO SCH (10:19)
[2022-10-10] MEDS: ATORVASTATIN 20 MG TABLET PO SCH (10:20)
[2022-10-10] MEDS: amLODIPine BESYLATE 10 MG TABLET PO SCH (10:20)
[2022-10-10] MEDS: SILDENAFIL CITRATE 20 MG TABLET PO SCH (10:21)
[2022-10-10] MEDS: METHYLPREDNISOLONE SOD SUCC 40 MG/ML VIAL IVP SCH ×2 (10:57→21:45)
[2022-10-10] MEDS ORDERED: METOPROLOL SUCCINATE 25 MG TAB.SR.24H (TOPROL XL) PO ONE (21:00)
[2022-10-11] VITALS (42 sets, daily range): BP systolic 92–134; PULSE 108–150; RESP 16–41; TEMP 98.2–98.6; O2SAT 95–100
[2022-10-11] MEDS: IPRATROPIUM/ALBUTEROL SULFATE 3 ML AMPUL.NEB (DUONEB) INH SCH ×6 (02:30→22:45)
[2022-10-11 03:45] LABS: ANION GAP 16 (5-15); CALCIUM 8.6 mg/dL (8.4-11.0); CHLORIDE 102 mmol/L (98-107); CREATININE 3.95 mg/dL (0.55-1.30); GLUCOSE 267 mg/dL (74-106); PHOSPHORUS 5.7 mg/dL (2.7-4.5); UREA NITROGEN, BLOOD 95 mg/dL (8-21)
[2022-10-11 04:17] LABS: BASOPHILS % (AUTO) 0.1 % (0.0-2.0); EOSINOPHILS % (AUTO) 0.1 % (0.0-4.0); LYMPHOCYTES # (AUTO) 1.2 K/uL (1.0-5.5); LYMPHOCYTES % (AUTO) 6.5 % (20.5-51.5); MEAN CORPUSCULAR HEMOGLOBIN 28 pg (27-31); MEAN CORPUSCULAR HGB CONC 30 % (32-36); MEAN CORPUSCULAR VOLUME 94 fL (79.0-98.0); MONOCYTES # (AUTO) 1.8 K/uL (0.0-1.0); MONOCYTES % (AUTO) 9.5 % (1.7-9.3); NEUTROPHILS % (AUTO) 83.8 % (40.0-70.0); PLATELET COUNT (AUTO) 107 K/uL (130-430); RED CELL DISTRIBUTION WIDTH 17.9 % (9.0-15.0); WHITE BLOOD COUNT (AUTO) 19.1 K/uL (4.8-10.8)
[2022-10-11 04:20] LABS: ERYTHROCYTE SEDIMENTATION RATE 8 MM/HR (0-20)
[2022-10-11 04:33] LABS: RED BLOOD CELL COUNT(AUTO) 1.89 MIL/uL (4.2-6.2)
[2022-10-11 04:34] LABS: HEMATOCRIT 17.7 % (36-48); HEMOGLOBIN 5.4 g/dL (12.0-16.0)
[2022-10-11] MEDS: NOREPINEPHRINE BITARTRATE 16 MG in NS 234 ML IV PRN (04:40)
[2022-10-11] MEDS: metroNIDAZOLE 250 mg/NS 50 ML IV SCH ×3 (05:01→21:41)
[2022-10-11] MEDS: NORMAL SALINE 5 ML DISP.SYRIN IVF SCH ×3 (05:02→21:42)
[2022-10-11] MEDS: FUROSEMIDE 20 MG/2 ML VIAL IVP SCH ×3 (05:03→21:42)
[2022-10-11] MEDS: NEPHROVITE, (FOLIC ACID/VITAMIN B COMP W-C 1 TAB) PO SCH (08:08)
[2022-10-11] MEDS: METHYLPREDNISOLONE SOD SUCC 40 MG/ML VIAL IVP SCH ×2 (08:08→21:41)
[2022-10-11] MEDS: ATORVASTATIN 20 MG TABLET PO SCH (08:08)
[2022-10-11] MEDS: METOPROLOL SUCCINATE 25 MG TAB.SR.24H (TOPROL XL) PO SCH (08:09)
[2022-10-11 11:06] LABS: HEMATOCRIT 21.5 % (36-48); HEMOGLOBIN 6.7 g/dL (12.0-16.0)
[2022-10-11] MEDS ORDERED: DIGOXIN 0.5 MG/2 ML AMP IVP ONE (11:30)
[2022-10-11] MEDS ORDERED: METOPROLOL TARTRATE 5 MG/5 ML VIAL ONE (20:29)
[2022-10-11] MEDS ORDERED: METOPROLOL TARTRATE 5 MG/5 ML VIAL IVP PRN (20:30)
[2022-10-12] VITALS (28 sets, daily range): BP systolic 94–158; PULSE 65–143; RESP 13–29; TEMP 97.1–98.4; O2SAT 95–100
[2022-10-12] MEDS: IPRATROPIUM/ALBUTEROL SULFATE 3 ML AMPUL.NEB (DUONEB) INH SCH ×6 (02:36→23:12)
[2022-10-12 03:01] LABS: BASOPHILS # (AUTO) 0.1 K/uL (0.0-0.2); BASOPHILS % (AUTO) 0.3 % (0.0-2.0); EOSINOPHILS # (AUTO) 0.2 K/uL (0.0-0.4); EOSINOPHILS % (AUTO) 0.8 % (0.0-4.0); HEMATOCRIT 33.8 % (36-48); HEMOGLOBIN 10.8 g/dL (12.0-16.0); LYMPHOCYTES # (AUTO) 1.4 K/uL (1.0-5.5); LYMPHOCYTES % (AUTO) 4.7 % (20.5-51.5); MEAN CORPUSCULAR HEMOGLOBIN 29 pg (27-31); MEAN CORPUSCULAR HGB CONC 32 % (32-36); MEAN CORPUSCULAR VOLUME 92 fL (79.0-98.0); MONOCYTES # (AUTO) 2.1 K/uL (0.0-1.0); MONOCYTES % (AUTO) 7.4 % (1.7-9.3); NEUTROPHILS # (AUTO) 24.8 K/uL (1.8-7.7); NEUTROPHILS % (AUTO) 86.8 % (40.0-70.0); RED BLOOD CELL COUNT(AUTO) 3.68 MIL/uL (4.2-6.2); RED CELL DISTRIBUTION WIDTH 15.8 % (9.0-15.0); WHITE BLOOD COUNT (AUTO) 28.5 K/uL (4.8-10.8)
[2022-10-12] MEDS: NOREPINEPHRINE BITARTRATE 16 MG in NS 234 ML IV PRN ×2 (03:02→18:48)
[2022-10-12 03:16] LABS: ANION GAP 15 (5-15); CALCIUM 8.4 mg/dL (8.4-11.0); CHLORIDE 103 mmol/L (98-107); CREATININE 3.91 mg/dL (0.55-1.30); GLUCOSE 322 mg/dL (74-106); PHOSPHORUS 5.9 mg/dL (2.7-4.5)
[2022-10-12 03:19] LABS: INR 1.5 (0.8-1.2); PLATELET COUNT (AUTO) 38 K/uL (130-430); PROTHROMBIN TIME 15.5 SECS (9.5-12.5)
[2022-10-12 03:23] LABS: UREA NITROGEN, BLOOD 121 mg/dL (8-21)
[2022-10-12 03:34] LABS: TOTAL IRON BIND. CAPACITY 146 ug/dL (250-450)
[2022-10-12 03:36] LABS: ERYTHROCYTE SEDIMENTATION RATE 2 MM/HR (0-20)
[2022-10-12] MEDS: NORMAL SALINE 5 ML DISP.SYRIN IVF SCH ×3 (05:42→22:19)
[2022-10-12] MEDS: metroNIDAZOLE 250 mg/NS 50 ML IV SCH ×3 (05:42→22:19)
[2022-10-12] MEDS: FUROSEMIDE 20 MG/2 ML VIAL IVP SCH ×3 (05:44→22:19)
[2022-10-12] MEDS ORDERED: PHYTONADIONE 10 MG in NS 50 ML IV ONE (08:00)
[2022-10-12] MEDS: METOPROLOL SUCCINATE 25 MG TAB.SR.24H (TOPROL XL) PO SCH (09:25)
[2022-10-12] MEDS: NEPHROVITE, (FOLIC ACID/VITAMIN B COMP W-C 1 TAB) PO SCH (09:26)
[2022-10-12] MEDS: ATORVASTATIN 20 MG TABLET PO SCH (09:26)
[2022-10-12] MEDS ORDERED: methylPREDNISolone SOD SUCC/PF 62.5 MG/ML VIAL IVP ONE (09:30)
[2022-10-12] MEDS: FLUCONAZOLE 200 mg/ NS 100 ML IV SCH (13:16)
[2022-10-12] MEDS: AMIODARONE HCL 450 MG in D5W 241 ML IV SCH (16:28)
[2022-10-12] MEDS ORDERED: PANTOPRAZOLE SODIUM 40 MG/VIAL (PROTONIX) IVP SCH (21:00)
[2022-10-12 21:02] LABS: HEMATOCRIT 30.6 % (36-48); HEMOGLOBIN 9.8 g/dL (12.0-16.0); MEAN CORPUSCULAR HEMOGLOBIN 30 pg (27-31); MEAN CORPUSCULAR HGB CONC 32 % (32-36); MEAN CORPUSCULAR VOLUME 92 fL (79.0-98.0); PLATELET COUNT (AUTO) 52 K/uL (130-430); RED BLOOD CELL COUNT(AUTO) 3.31 MIL/uL (4.2-6.2); RED CELL DISTRIBUTION WIDTH 16.6 % (9.0-15.0)
[2022-10-12 21:20] LABS: WHITE BLOOD COUNT (AUTO) 31.5 K/uL (4.8-10.8)
[2022-10-12 21:39] LABS: ATYPICAL LYMPHOCYTES % 0 % (0-0); BASOPHILS % (MANUAL) 0 % (0-2); EOSINOPHILS % (MANUAL) 0 % (0-7); LYMPHOCYTES % (MANUAL) 4 % (20-46); MONOCYTES % (MANUAL) 1 % (0-11)
[2022-10-12] MEDS: PANTOPRAZOLE SODIUM 40 MG in NS 50 ML IV SCH (22:18)
[2022-10-12] MEDS: methylPREDNISolone SOD SUCC/PF 62.5 MG/ML VIAL IVP SCH (22:19)
[2022-10-13] VITALS (29 sets, daily range): BP systolic 88–166; PULSE 86–120; RESP 13–33; TEMP 96.5–97.8; O2SAT 94–100
[2022-10-13] MEDS: PANTOPRAZOLE SODIUM 40 MG in NS 50 ML IV SCH ×2 (02:03→07:00)
[2022-10-13] MEDS: IPRATROPIUM/ALBUTEROL SULFATE 3 ML AMPUL.NEB (DUONEB) INH SCH ×6 (03:38→23:19)
[2022-10-13 05:47] LABS: INR 1.4 (0.8-1.2); PROTHROMBIN TIME 14.7 SECS (9.5-12.5)
[2022-10-13 05:57] LABS: BASOPHILS % (AUTO) 0.1 % (0.0-2.0); HEMATOCRIT 28.9 % (36-48); HEMOGLOBIN 9.2 g/dL (12.0-16.0); LYMPHOCYTES # (AUTO) 0.7 K/uL (1.0-5.5); LYMPHOCYTES % (AUTO) 2.6 % (20.5-51.5); MEAN CORPUSCULAR HEMOGLOBIN 30 pg (27-31); MEAN CORPUSCULAR HGB CONC 32 % (32-36); MEAN CORPUSCULAR VOLUME 94 fL (79.0-98.0); MONOCYTES # (AUTO) 0.9 K/uL (0.0-1.0); MONOCYTES % (AUTO) 3.2 % (1.7-9.3); NEUTROPHILS # (AUTO) 26.5 K/uL (1.8-7.7); NEUTROPHILS % (AUTO) 94.1 % (40.0-70.0); RED BLOOD CELL COUNT(AUTO) 3.09 MIL/uL (4.2-6.2); RED CELL DISTRIBUTION WIDTH 16.7 % (9.0-15.0); WHITE BLOOD COUNT (AUTO) 28.1 K/uL (4.8-10.8)
[2022-10-13] MEDS: metroNIDAZOLE 250 mg/NS 50 ML IV SCH (06:02)
[2022-10-13] MEDS: NORMAL SALINE 5 ML DISP.SYRIN IVF SCH ×3 (06:02→20:50)
[2022-10-13] MEDS: FUROSEMIDE 20 MG/2 ML VIAL IVP SCH ×3 (06:03→20:50)
[2022-10-13 06:09] LABS: ERYTHROCYTE SEDIMENTATION RATE 1 MM/HR (0-20)
[2022-10-13 06:31] LABS: ANION GAP 20 (5-15); CHLORIDE 102 mmol/L (98-107); CREATININE 4.68 mg/dL (0.55-1.30); GLUCOSE 388 mg/dL (74-106); PHOSPHORUS 7.2 mg/dL (2.7-4.5)
[2022-10-13 06:36] LABS: UREA NITROGEN, BLOOD 159 mg/dL (8-21)
[2022-10-13 06:44] LABS: PLATELET COUNT (AUTO) 14 K/uL (130-430)
[2022-10-13 08:07] LABS: FERRITIN 232 ng/mL (15-150)
[2022-10-13] MEDS ORDERED: LEVOFLOXACIN 250 MG/D5W 50 ML IV SCH (09:00)
[2022-10-13] MEDS ORDERED: DEXTROSE 50% JECT 50 ML DISP.SYRIN IVP PRN (09:30)
[2022-10-13] MEDS: ATORVASTATIN 20 MG TABLET PO SCH (10:05)
[2022-10-13] MEDS: methylPREDNISolone SOD SUCC/PF 62.5 MG/ML VIAL IVP SCH ×2 (10:05→20:49)
[2022-10-13] MEDS: NEPHROVITE, (FOLIC ACID/VITAMIN B COMP W-C 1 TAB) PO SCH (10:06)
[2022-10-13] MEDS: METOPROLOL SUCCINATE 25 MG TAB.SR.24H (TOPROL XL) PO SCH (10:06)
[2022-10-13] MEDS: INSULIN REGULAR, HUMAN 100 UNITS/ML, 3 ML VIAL (humuLIN R) SUBCUT PRN ×3 (10:16→21:02)
[2022-10-13] MEDS: FLUCONAZOLE 200 mg/ NS 100 ML IV SCH (16:13)
[2022-10-13] MEDS ORDERED: HEPARIN SODIUM,PORCINE 5,000 UNITS/ML VIAL MC ONE (16:15)
[2022-10-13] MEDS ORDERED: HEPARIN SODIUM,PORCINE 5,000 UNITS/ML VIAL ONE (16:27)
[2022-10-13] MEDS: NOREPINEPHRINE BITARTRATE 16 MG in NS 234 ML IV PRN (17:22)
[2022-10-13] MEDS: PANTOPRAZOLE SODIUM 40 MG/VIAL (PROTONIX) IVP SCH (20:49)
[2022-10-13] MEDS: MEROPENEM 500 MG IVPB PREMIX 50 ML IV SCH (20:49)
[2022-10-13] MEDS: AMIODARONE HCL 450 MG in D5W 241 ML IV SCH (21:06)
[2022-10-13] MEDS ORDERED: ALBUMIN HUMAN 25% 100 ML IV ONE (22:13)
[2022-10-14] VITALS (30 sets, daily range): BP systolic 90–142; PULSE 75–96; RESP 14–28; TEMP 96.4–98.2; O2SAT 93–100
[2022-10-14] MEDS: IPRATROPIUM/ALBUTEROL SULFATE 3 ML AMPUL.NEB (DUONEB) INH SCH ×6 (04:01→23:55)
[2022-10-14 05:11] LABS: ERYTHROCYTE SEDIMENTATION RATE 1 MM/HR (0-20)
[2022-10-14 05:23] LABS: BASOPHILS # (AUTO) 0.1 K/uL (0.0-0.2); BASOPHILS % (AUTO) 0.3 % (0.0-2.0); HEMOGLOBIN 7.9 g/dL (12.0-16.0); LYMPHOCYTES # (AUTO) 0.3 K/uL (1.0-5.5); LYMPHOCYTES % (AUTO) 0.8 % (20.5-51.5); MEAN CORPUSCULAR HEMOGLOBIN 30 pg (27-31); MEAN CORPUSCULAR HGB CONC 33 % (32-36); MEAN CORPUSCULAR VOLUME 91 fL (79.0-98.0); MONOCYTES # (AUTO) 1.8 K/uL (0.0-1.0); MONOCYTES % (AUTO) 4.7 % (1.7-9.3); NEUTROPHILS # (AUTO) 36.5 K/uL (1.8-7.7); NEUTROPHILS % (AUTO) 94.2 % (40.0-70.0); PLATELET COUNT (AUTO) 120 K/uL (130-430); RED BLOOD CELL COUNT(AUTO) 2.65 MIL/uL (4.2-6.2); RED CELL DISTRIBUTION WIDTH 15.8 % (9.0-15.0)
[2022-10-14 05:30] LABS: WHITE BLOOD COUNT (AUTO) 38.8 K/uL (4.8-10.8)
[2022-10-14] MEDS: NORMAL SALINE 5 ML DISP.SYRIN IVF SCH ×3 (05:37→20:46)
[2022-10-14] MEDS: FUROSEMIDE 20 MG/2 ML VIAL IVP SCH ×3 (05:37→20:44)
[2022-10-14 06:18] LABS: ALANINE AMINOTRANSFERASE 54 U/L (12-78); ALBUMIN 3.1 g/dL (3.4-4.8); ANION GAP 12 (5-15); ASPARTATE AMINOTRANSFERASE 47 U/L (10-37); CALCIUM 8.6 mg/dL (8.4-11.0); CHLORIDE 100 mmol/L (98-107); CREATININE 2.58 mg/dL (0.55-1.30); GLUCOSE 158 mg/dL (74-106); TOTAL BILIRUBIN 0.6 mg/dL (0.0-1.0); UREA NITROGEN, BLOOD 63 mg/dL (8-21)
[2022-10-14] MEDS ORDERED: BENZOCAINE 20% 0.5mL UD SPRAY MM ONE (07:17)
[2022-10-14] MEDS ORDERED: SIMETHICONE 40 MG/0.6 ML ML ONE (07:17)
[2022-10-14] MEDS: fentaNYL CITRATE/PF 100 MCG/2 ML AMP ONE ×2 (08:33→08:37)
[2022-10-14] MEDS: MIDAZOLAM HCL 5 MG/5 ML VIAL ONE ×3 (08:33→08:44)
[2022-10-14] MEDS: METOPROLOL SUCCINATE 25 MG TAB.SR.24H (TOPROL XL) PO SCH (09:00)
[2022-10-14] MEDS: ATORVASTATIN 20 MG TABLET PO SCH (09:00)
[2022-10-14] MEDS: NEPHROVITE, (FOLIC ACID/VITAMIN B COMP W-C 1 TAB) PO SCH (09:00)
[2022-10-14] MEDS ORDERED: EPINEPHrine JECT 0.1 MG/ML SYR ONE (09:14)
[2022-10-14] MEDS: AMIODARONE HCL 450 MG in D5W 241 ML IV SCH (10:28)
[2022-10-14] MEDS: NOREPINEPHRINE BITARTRATE 16 MG in NS 234 ML IV PRN (10:30)
[2022-10-14] MEDS: PANTOPRAZOLE SODIUM 40 MG/VIAL (PROTONIX) IVP SCH ×2 (10:38→20:43)
[2022-10-14] MEDS: methylPREDNISolone SOD SUCC/PF 62.5 MG/ML VIAL IVP SCH ×2 (10:39→20:45)
[2022-10-14] MEDS: MEROPENEM 500 MG IVPB PREMIX 50 ML IV SCH ×2 (10:39→20:48)
[2022-10-14] MEDS: SUCRALFATE 1 GM/10 ML UDC GT SCH ×3 (11:30→20:43)
[2022-10-14] MEDS: FLUCONAZOLE 200 mg/ NS 100 ML IV SCH (15:16)
[2022-10-14] MEDS: INSULIN REGULAR, HUMAN 100 UNITS/ML, 3 ML VIAL (humuLIN R) SUBCUT PRN ×2 (15:35→20:53)
[2022-10-15] VITALS (19 sets, daily range): BP systolic 95–136; PULSE 85–104; RESP 16–26; TEMP 96.1–98; O2SAT 95–100
[2022-10-15] MEDS: AMIODARONE HCL 450 MG in D5W 241 ML IV SCH (00:54)
[2022-10-15] MEDS: INSULIN REGULAR, HUMAN 100 UNITS/ML, 3 ML VIAL (humuLIN R) SUBCUT PRN ×3 (02:49→15:14)
[2022-10-15] MEDS: IPRATROPIUM/ALBUTEROL SULFATE 3 ML AMPUL.NEB (DUONEB) INH SCH ×3 (03:45→11:23)
[2022-10-15] MEDS: SUCRALFATE 1 GM/10 ML UDC GT SCH ×2 (05:32→12:12)
[2022-10-15] MEDS: FUROSEMIDE 20 MG/2 ML VIAL IVP SCH ×2 (05:33→14:32)
[2022-10-15] MEDS: NORMAL SALINE 5 ML DISP.SYRIN IVF SCH ×2 (05:34→14:32)
[2022-10-15] MEDS: NOREPINEPHRINE BITARTRATE 16 MG in NS 234 ML IV PRN ×2 (05:36→08:44)
[2022-10-15 06:12] LABS: HEMATOCRIT 22.9 % (36-48); HEMOGLOBIN 7.3 g/dL (12.0-16.0); MEAN CORPUSCULAR HEMOGLOBIN 30 pg (27-31); MEAN CORPUSCULAR HGB CONC 32 % (32-36); MEAN CORPUSCULAR VOLUME 92 fL (79.0-98.0); PLATELET COUNT (AUTO) 97 K/uL (130-430); RED BLOOD CELL COUNT(AUTO) 2.49 MIL/uL (4.2-6.2); RED CELL DISTRIBUTION WIDTH 15.4 % (9.0-15.0)
[2022-10-15 06:29] LABS: ANION GAP 14 (5-15); CALCIUM 9.7 mg/dL (8.4-11.0); CHLORIDE 99 mmol/L (98-107); CREATININE 3.36 mg/dL (0.55-1.30); GLUCOSE 203 mg/dL (74-106); PHOSPHORUS 7.2 mg/dL (2.7-4.5); UREA NITROGEN, BLOOD 79 mg/dL (8-21)
[2022-10-15 07:15] LABS: ERYTHROCYTE SEDIMENTATION RATE < 1 MM/HR (0-20)
[2022-10-15] MEDS: methylPREDNISolone SOD SUCC/PF 62.5 MG/ML VIAL IVP SCH (08:28)
[2022-10-15] MEDS: ATORVASTATIN 20 MG TABLET PO SCH (08:30)
[2022-10-15] MEDS: NEPHROVITE, (FOLIC ACID/VITAMIN B COMP W-C 1 TAB) PO SCH (08:30)
[2022-10-15] MEDS: METOPROLOL SUCCINATE 25 MG TAB.SR.24H (TOPROL XL) PO SCH (08:32)
[2022-10-15] MEDS: PANTOPRAZOLE SODIUM 40 MG/VIAL (PROTONIX) IVP SCH (08:33)
[2022-10-15] MEDS: MEROPENEM 500 MG IVPB PREMIX 50 ML IV SCH (08:36)
[2022-10-15 09:04] LABS: WHITE BLOOD COUNT (AUTO) 36.9 K/uL (4.8-10.8)
[2022-10-15] MEDS ORDERED: AMIODARONE HCL 200 MG TABLET PO ONE (12:00)
[2022-10-15] MEDS: FLUCONAZOLE 200 mg/ NS 100 ML IV SCH (12:13)
[2022-10-15 15:57] LABS: BAND % (MANUAL) 8 % (0-6); BASOPHILS % (MANUAL) 0 % (0-2); EOSINOPHILS % (MANUAL) 0 % (0-7); MONOCYTES % (MANUAL) 6 % (0-11)
[2022-10-15 15:59] LABS: LYMPHOCYTES % (MANUAL) 0 % (20-46)
[2022-10-15] MEDS ORDERED: ALBUMIN HUMAN 25% 50 ML IV ONE (16:24)
[2022-10-15] MEDS ORDERED: HEPARIN SODIUM,PORCINE 5,000 UNITS/ML VIAL ONE (16:51)
[2022-10-15] MEDS ORDERED: LevALBUTEROL HCL 1.25 MG/0.5 ML *CONC.* VIAL.NEB (XOPENEX CONC.) INH SCH (19:00)
[2022-10-15] MEDS ORDERED: AMIODARONE HCL 200 MG TABLET PO SCH (21:00)
== END 2022-10-15 17:18 | DRG 871 ==
LOC: SED 03:04 → STU 06:52 → SIC 10-08 23:45
PROVIDERS: ADMIT Specialist; ATTEND Specialist
PROC: 5A09357 Assistance with Respiratory Ventilation, Less than 24 Consecutive Hours, Continuous Positive Airway Pressure (ICD-10-PCS; 2022-10-06)
PROC: 5A09357 Assistance with Respiratory Ventilation, Less than 24 Consecutive Hours, Continuous Positive Airway Pressure (ICD-10-PCS; 2022-10-07)
PROC: 5A09357 Assistance with Respiratory Ventilation, Less than 24 Consecutive Hours, Continuous Positive Airway Pressure (ICD-10-PCS; 2022-10-08)
PROC: 06HY33Z Insertion of Infusion Device into Lower Vein, Percutaneous Approach (ICD-10-PCS; principal; 2022-10-09)
PROC: 5A1D70Z Performance of Urinary Filtration, Intermittent, Less than 6 Hours Per Day (ICD-10-PCS; 2022-10-09)
PROC: 5A09357 Assistance with Respiratory Ventilation, Less than 24 Consecutive Hours, Continuous Positive Airway Pressure (ICD-10-PCS; 2022-10-09)
PROC: 5A1D70Z Performance of Urinary Filtration, Intermittent, Less than 6 Hours Per Day (ICD-10-PCS; 2022-10-10)
PROC: 5A09357 Assistance with Respiratory Ventilation, Less than 24 Consecutive Hours, Continuous Positive Airway Pressure (ICD-10-PCS; 2022-10-10)
PROC: 30233N1 Transfusion of Nonautologous Red Blood Cells into Peripheral Vein, Percutaneous Approach (ICD-10-PCS; 2022-10-11)
PROC: 5A1D70Z Performance of Urinary Filtration, Intermittent, Less than 6 Hours Per Day (ICD-10-PCS; 2022-10-11)
PROC: 5A1D70Z Performance of Urinary Filtration, Intermittent, Less than 6 Hours Per Day (ICD-10-PCS; 2022-10-12)
PROC: 02HV33Z Insertion of Infusion Device into Superior Vena Cava, Percutaneous Approach (ICD-10-PCS; 2022-10-13)
PROC: B548ZZA Ultrasonography of Superior Vena Cava, Guidance (ICD-10-PCS; 2022-10-13)
PROC: 30233R1 Transfusion of Nonautologous Platelets into Peripheral Vein, Percutaneous Approach (ICD-10-PCS; 2022-10-13)
PROC: 5A1D70Z Performance of Urinary Filtration, Intermittent, Less than 6 Hours Per Day (ICD-10-PCS; 2022-10-13)
PROC: 0DB78ZX Excision of Stomach, Pylorus, Via Natural or Artificial Opening Endoscopic, Diagnostic (ICD-10-PCS; 2022-10-14)
PROC: 0W3P8ZZ Control Bleeding in Gastrointestinal Tract, Via Natural or Artificial Opening Endoscopic (ICD-10-PCS; 2022-10-14)
PROC: 5A1D70Z Performance of Urinary Filtration, Intermittent, Less than 6 Hours Per Day (ICD-10-PCS; 2022-10-15)
DX: A41.9 Sepsis, unspecified organism (principal); I21.19 ST elevation (STEMI) myocardial infarction involving other coronary artery of inferior wall; J18.9 Pneumonia, unspecified organism; J96.01 Acute respiratory failure with hypoxia; K22.11 Ulcer of esophagus with bleeding; K26.4 Chronic or unspecified duodenal ulcer with hemorrhage; K29.61 Other gastritis with bleeding; E87.1 Hypo-osmolality and hyponatremia; D62 Acute posthemorrhagic anemia; E44.0 Moderate protein-calorie malnutrition; D68.59 Other primary thrombophilia; J44.1 Chronic obstructive pulmonary disease with (acute) exacerbation; J44.0 Chronic obstructive pulmonary disease with (acute) lower respiratory infection; N17.9 Acute kidney failure, unspecified; I13.0 Hypertensive heart and chronic kidney disease with heart failure and stage 1 through stage 4 chronic kidney disease, or unspecified chronic kidney disease; N39.0 Urinary tract infection, site not specified; T82.41XA Breakdown (mechanical) of vascular dialysis catheter, initial encounter; E11.65 Type 2 diabetes mellitus with hyperglycemia; E78.00 Pure hypercholesterolemia, unspecified; E83.39 Other disorders of phosphorus metabolism; M10.9 Gout, unspecified; I25.10 Atherosclerotic heart disease of native coronary artery without angina pectoris; E88.09 Other disorders of plasma-protein metabolism, not elsewhere classified; E87.6 Hypokalemia; D69.6 Thrombocytopenia, unspecified; R74.01 Elevation of levels of liver transaminase levels; D63.8 Anemia in other chronic diseases classified elsewhere; K44.9 Diaphragmatic hernia without obstruction or gangrene; R57.0 Cardiogenic shock; I50.9 Heart failure, unspecified; N18.9 Chronic kidney disease, unspecified; E11.22 Type 2 diabetes mellitus with diabetic chronic kidney disease; Y83.8 Other surgical procedures as the cause of abnormal reaction of the patient, or of later complication, without mention of misadventure at the time of the procedure; Y92.89 Other specified places as the place of occurrence of the external cause; Z68.25 Body mass index [BMI] 25.0-25.9, adult; I46.9 Cardiac arrest, cause unspecified
CPT/HCPCS: 36415; 36600; 43239; 43255; 71045; 76376; 76770; 80048; 80053; 80162; 81000; 82272; 82570; 82607; 82728; 82803; 82962; 83540; 83550; 83605; 83735; 83880; 83930; 84100; 84302; 84484; 85007; 85018; 85025; 85027; 85044; 85379; 85610-TC; 85651-TC; 85730-TC; 86480; 86738; 86870; 86886; 86900; 86901; 86905; 86920; 87040; 87081; 87086; 87449; 88305; 88312; 88313; 90935; 90937; 92950; 93005; 93306; 93970; 94640; 94660; 94760; 96365; 96367; 96375; 96376; 97116-GP; 97530-GP; 99285; C1751; C1889; C9113; G0378; J0171; J0456; J0696; J1030; J1160; J1450; J1644; J1940; J1956; J2185; J2250; J2405; J2930; J3010; J3430; J3490; J7030; J7040; J7050; J7060; P9021; P9034; P9046